=== PATIENT | male | born 1990 | race Caucasian/White ===

== ENCOUNTER 2018-05-05 02:35 | Emergency (ER) | payer OTHER ==
[~2018-05-05] VITALS: Ht 193 cm; Wt 108.9 kg
[2018-05-05 02:40] VITALS: BP_SYST 159
[2018-05-05 03:30] VITALS: BP_SYST 159
== END 2018-05-05 03:30 | disposition home or self-care (01) ==
LOC: SED 02:35
DX: S39.012A Strain of muscle, fascia and tendon of lower back, initial encounter (principal); S16.1XXA Strain of muscle, fascia and tendon at neck level, initial encounter; R03.0 Elevated blood-pressure reading, without diagnosis of hypertension; Z88.0 Allergy status to penicillin; X58.XXXA Exposure to other specified factors, initial encounter; Y93.89 Activity, other specified; Y92.89 Other specified places as the place of occurrence of the external cause; Y99.8 Other external cause status
CPT/HCPCS: 72040-TC; 72100-TC; 99283

== ENCOUNTER 2018-07-19 12:02 | Emergency (ER) | payer OTHER ==
[~2018-07-19] VITALS: Ht 193 cm; Wt 117.9 kg
[2018-07-19 12:05] VITALS: BP_SYST 126
--- NOTE | 2018-07-19 12:05 | NUR ---
BROUGHT BACK TO BED #3 AND TRIAGED. REPORT GIVEN TO BURT
--- NOTE | 2018-07-19 12:10 | NUR ---
Patient comes to ER in personal vehicle, AOx[employer], verbal and ambulatory. Patient has complaint of N/V x2days. Denies stomach pain and diarrhea. Stomach is soft and non distended. No other complaint or injury at this time.
--- NOTE | 2018-07-19 12:15 | NUR ---
DR COURTNEY at bedside for ER evaluation
[2018-07-19] MEDS ORDERED: NACL 0.9% 1,000 ML IV ONE ×2 (12:17→15:00)
[2018-07-19] MEDS ORDERED: ONDANSETRON HCL 4 MG/2 ML VIAL IVP ONE (12:30)
[2018-07-19] MEDS ORDERED: KETOROLAC TROMETHAMINE 30 MG VIAL IVP ONE (12:30)
[2018-07-19 12:41] LABS: BASOPHILS # (AUTO) 0.1 K/uL (0.0-0.2); BASOPHILS % (AUTO) 0.8 % (0.0-2.0); EOSINOPHILS # (AUTO) 0.1 K/uL (0.0-0.4); EOSINOPHILS % (AUTO) 1.3 % (0.0-4.0); HEMATOCRIT 47.8 % (36-54); HEMOGLOBIN 16.3 g/dL (14.0-18.0); LYMPHOCYTES # (AUTO) 2.4 K/uL (1.0-5.5); LYMPHOCYTES % (AUTO) 25.8 % (20.5-51.5); MEAN CORPUSCULAR HEMOGLOBIN 29 pg (27-31); MEAN CORPUSCULAR HGB CONC 34 % (32-36); MEAN CORPUSCULAR VOLUME 86 fL (79.0-98.0); MONOCYTES # (AUTO) 0.7 K/uL (0.0-1.0); MONOCYTES % (AUTO) 7.6 % (1.7-9.3); NEUTROPHILS # (AUTO) 6.1 K/uL (1.8-7.7); NEUTROPHILS % (AUTO) 64.5 % (40.0-70.0); PLATELET COUNT (AUTO) 335 K/uL (130-430); RED BLOOD CELL COUNT(AUTO) 5.58 MIL/uL (4.2-6.2); RED CELL DISTRIBUTION WIDTH 13.9 % (9.0-15.0); WHITE BLOOD COUNT (AUTO) 9.4 K/uL (4.8-10.8)
[2018-07-19 12:54] LABS: PROTHROMBIN TIME 10.3 SECS (9.5-12.5)
[2018-07-19 12:55] LABS: CALCIUM 9.7 mg/dL (8.4-11.0); CREATININE 1.15 mg/dL (0.55-1.30); POTASSIUM 3.8 mmol/L (3.5-5.1)
[2018-07-19 12:58] LABS: ALBUMIN 3.7 g/dL (3.4-4.8); TOTAL BILIRUBIN 0.8 mg/dL (0.0-1.0)
--- NOTE | 2018-07-19 13:00 | NUR ---
Medicated per MD orders. IVF infusing with no s/s of infiltration at this time. Will cont to monitor
[2018-07-19 14:55] LABS: BILIRUBIN,URINE 1+ (NEGATIVE); BLOOD, URINE NEGATIVE (NEGATIVE); CLARITY/URINE CLEAR (CLEAR); COLOR,URINE YELLOW (YELLOW); GLUCOSE,URINE NEGATIVE (NEGATIVE); KETONES,URINE NEGATIVE (NEGATIVE); LEUKOCYTE ESTERASE ,URINE NEGATIVE (NEGATIVE); NITRITE, URINE NEGATIVE (NEGATIVE); PH,URINE 6.5 (5.0-8.0); PROTEIN URINE 1+ (NEGATIVE)
--- NOTE | 2018-07-19 15:00 | NUR ---
Patient resting in bed, no signs of distressn noted, IVF infusing with no s/s of infiltration at this time. Will cont to monitor
[2018-07-19 15:12] LABS: RBC,URINE 0-3 /HPF (0-3); WBC,URINE 0-3 /HPF (0-3)
[2018-07-19 15:13] LABS: BACTERIA,URINE RARE /HPF (None Seen); MUCUS,URINE 2+ /LPF (None Seen)
[2018-07-19 16:40] VITALS: BP_SYST 134
--- NOTE | 2018-07-19 16:40 | NUR ---
Patient given written and verbal discharge instructions and verbalizes understanding. ER MD discussed with patient the results and treatment provided. Patient in stable condition. ID arm band removed. IV catheter removed intact and dressing applied, no active bleeding. Rx of zofran and reglan given. Patient educated on pain management, viran gastroenterisit and to follow up with PMD. Pain Scale 0/10. Opportunity for questions provided and answered. Medication side effect fact sheet provided.
== END 2018-07-19 16:40 | disposition home or self-care (01) ==
LOC: SED 12:02
DX: K52.9 Noninfective gastroenteritis and colitis, unspecified (principal); R11.2 Nausea with vomiting, unspecified; Z88.0 Allergy status to penicillin
CPT/HCPCS: 36415; 80053; 81000; 82150; 83605; 83690; 85025; 85610; 85730; 87040; 96361; 96374; 96375; 99283; J1885; J2405; J7030

== ENCOUNTER 2018-08-17 20:38 | Emergency (ER) | payer OTHER ==
[~2018-08-17] VITALS: Ht 193 cm; Wt 113.4 kg
[2018-08-17 20:45] VITALS: BP_SYST 134
--- NOTE | 2018-08-17 20:45 | NUR ---
Patient to ER bed 8 for evaluation. Side rails up. Report given to JACKIE Mancia.
[2018-08-17] MEDS ORDERED: IPRATROPIUM BROM 0.5 MG/2.5 ML VIAL.NEB (ATROVENT) IH ONE (21:00)
[2018-08-17] MEDS ORDERED: PREDNISONE 20 MG TABLET PO ONE (21:00)
[2018-08-17] MEDS ORDERED: ALBUTEROL SULFATE 0.083% 2.5 MG/3 ML VIAL.NEB IH ONE (21:00)
--- NOTE | 2018-08-17 21:04 | NUR ---
Dr. Tiwari bedside for Pt eval
--- NOTE | 2018-08-17 21:10 | NUR ---
Pt came into ED C/O SOB since 1800. Pt denies fever, chills, nausea or vomiting. Pt with chest pain with cough. Pt describes sharp constant 5/10 pain in middle of chest without radiation. Pt without treatment for pain. Pt has run out of his inhaler. Pt has med Hx of asthma. No other injuries and or complaints noted. VSS no s/s of acute distress. Resting on gurney with rails up
[2018-08-17 21:40] VITALS: BP_SYST 134
--- NOTE | 2018-08-17 21:40 | NUR ---
Patient given written and verbal discharge instructions and verbalizes understanding. ER MD discussed with patient the results and treatment provided. Patient in stable condition. ID arm band removed. Rx of Prednisone, Albuterol, and motrin given. Patient educated on pain management and to follow up with PMD. Pain Scale 0/10. Opportunity for questions provided and answered. Medication side effect fact sheet provided.
== END 2018-08-17 21:40 | disposition home or self-care (01) ==
LOC: SED 20:38
DX: J45.909 Unspecified asthma, uncomplicated (principal); R03.0 Elevated blood-pressure reading, without diagnosis of hypertension; Z88.0 Allergy status to penicillin
CPT/HCPCS: 94640; 99284; J7512; J7613